=== PATIENT | female | born 2000 | race Caucasian/White ===

== ENCOUNTER 2023-05-24 11:53 | Emergency (ER) | payer SELFPAY ==
[2023-05-24] MEDS ORDERED: Famotidine 20 MG/2 ML SDV IVPUSH ONE (12:08)
[2023-05-24] MEDS ORDERED: predniSONE 20 MG Tab PO ONE ×2 (12:08→13:24)
[2023-05-24] MEDS ORDERED: diphenhydrAMINE 25 MG Tab PO ONE (12:46)
== END 2023-05-24 14:36 | disposition home or self-care (01) ==
LOC: DL.ED 11:53
DX: T63.441A Toxic effect of venom of bees, accidental (unintentional), initial encounter (principal)
CPT/HCPCS: 96374; 99283; 99283-25; A9270-GY; J3490; J7512